=== PATIENT | male | born 1965 | race African-American/Black ===

== ENCOUNTER 2021-12-26 22:11 | Emergency (ER) | payer OTHER ==
[~2021-12-26] VITALS: Ht 175.3 cm; Wt 118.0 kg
[2021-12-27 01:10] VITALS: BP 122/79
== END 2021-12-27 01:08 | disposition home or self-care (01) ==
LOC: ER 22:11
DX: U07.1 COVID-19 (principal); B34.9 Viral infection, unspecified; I10 Essential (primary) hypertension; E11.9 Type 2 diabetes mellitus without complications
CPT/HCPCS: 36415; 71046